=== PATIENT | female | born 1990 | race Caucasian/White ===

== ENCOUNTER 2019-05-25 11:45 | Emergency (ER) | payer MEDICAID ==
[~2019-05-25] VITALS: Ht 149.9 cm; Wt 75.0 kg
[~2019-05-25 11:45] MED LIST: MULT1TAB74 PO; NAPR-1166 PO; ONDA4TAB12 PO; OXYC-134 PO; TAMS0.4C32 PO
[2019-05-25 11:47] VITALS: BP 135/75
[2019-05-25] MEDS ORDERED: LIDOcaine 1% w/epiNEPHrine 1:200,000 30ml vial IM ONE (13:35)
[2019-05-25] MEDS ORDERED: CEPH250T PO (14:19)
== END 2019-05-25 14:35 | disposition home or self-care (01) ==
LOC: ER 11:45
DX: O99.719 Diseases of the skin and subcutaneous tissue complicating pregnancy, unspecified trimester (principal); L02.214 Cutaneous abscess of groin; Z3A.00 Weeks of gestation of pregnancy not specified; Z79.2 Long term (current) use of antibiotics; Z79.899 Other long term (current) drug therapy; Z87.442 Personal history of urinary calculi; Z96.0 Presence of urogenital implants
CPT/HCPCS: 10060; 99283